=== PATIENT | female | born 1980 | race Caucasian/White ===

== ENCOUNTER 2017-01-06 09:39 | Day surgery (SDC) | payer OTHER ==
[~2017-01-06 09:39] MED LIST: ceFAZolin 2 GM/DEXTROSE 100 ML IV ONE
[2017-01-06] MEDS ORDERED: LIDOCAINE 1% 2 ML INJ ONE (10:01)
[2017-01-06] MEDS ORDERED: CEFAZOLIN 2 GM/DEXTROSE/100 ML BAG IV ONE (10:01)
[2017-01-06] MEDS ORDERED: THROMBIN (BOVINE) 5,000 UNIT VIAL TP ONE (10:29)
[2017-01-06] MEDS ORDERED: BUPIVACAINE 0.5% 30 ML SDV ONE (10:30)
[2017-01-06] MEDS ORDERED: MIDAZOLAM 2 MG/2 ML VIAL ONE (12:06)
[2017-01-06] MEDS ORDERED: PROPOFOL/EMULSION 500 MG/50 ML BOTTLE IV ONE (12:11)
[2017-01-06] MEDS ORDERED: fentaNYL 100 MCG/2 ML INJ ONE ×2 (12:13→12:41)
[2017-01-06] MEDS ORDERED: OXYCODONE/APAP 5/325 TAB ONE (14:12)
--- NOTE | 2017-01-09 11:57 | GOP ---
[f rep st] OPERATIVE REPORT DATE OF OPERATION: SURGEON: Ray Barnes MD PREOPERATIVE DIAGNOSIS: Chronic left breast abscess. POSTOPERATIVE DIAGNOSIS: Chronic left breast abscess. PROCEDURE PERFORMED: FINDINGS: Patient was found to have a chronic, but nondraining abscess in the periareolar area of t he left breast at 7 o'clock. DESCRIPTION OF PROCEDURE: The patient was taken to the operating room where she received satisfacto ry general endotracheal anesthesia by Dr. Benoit. Placed in the supine position, prepped and draped in the usual sterile fashion. An elliptical skin incision was made and a complete excision of the bi opsy cavity including some skin of the areola was done. No abscess pocket or fistula to the nipple w as identified and the chronic abscess was completely excised intact. Hemostasis was obtained with el ectrocautery. The wound was infiltrated with 0.5% Marcaine. The breast tissue and subcutaneous tissu e were closed with 3-0 Vicryl interrupted sutures and the skin with a 4-0 Monocryl subcuticular stit ch. There were no complications. She tolerated the procedure well, was taken to the recovery room in good condition. PROCEDURE: Excisional left breast biopsy. /[id number]/MODL
== END 2017-01-06 14:40 | disposition home or self-care (01) ==
LOC: FSGY 09:39
PROVIDERS: ATTEND Surgery
PROC: 0HBU0ZZ Excision of Left Breast, Open Approach (ICD-10-PCS; principal; 2017-01-06 11:00)
DX: N61.1 Abscess of the breast and nipple (principal)
CPT/HCPCS: J0690; J2250; J2704; J3010